=== PATIENT | male | born 1960 | race Caucasian/White ===

== ENCOUNTER 2016-05-27 06:59 | Inpatient (IN) ==
--- NOTE | 2016-05-26 20:41 | Discharge Summary ---
<Virginia Wiley Mary - Last Filed: 05/26/16 20:40> Date of Encounter: 05/26/16 - Discharge Diagnosis (1) Rotator cuff tear arthropathy of right shoulder Priority: Primary Status: Acute (2) Pacemaker Priority: Secondary Status: Chronic - Discharge Medications Home Medications: OxyCODONE Immed Rel [Roxicodone 5 MG] 5 - 10 mg PO Q6HR PRN #40 tablet 05/26/16 [Rx] Allergies/Adverse Reactions: Allergies No Known Allergies Allergy (Verified 05/27/16 07:45) Primary care physician: PCP NO - Patient Status Disposition: Home, Self-Care Condition: Good - Discharge Instructions Follow Up With: NO,PCP [Primary Care Provider] - Additional Instructions: Discharge Instructions: Total Shoulder Please call [facility] ([phone]), your Primary Care Physician, or report to the Emergency Room if you have any of the following symptoms: Nausea, vomiting, fever greater that 101.5, swelling, chest pain, shortness of breath, increased pain/redness/drainage/odor for your incision site, numbness/ tingling, or any other concerning symptoms. ACTIVITY: Always keep your arm in the sling. Do not raise your arm away from your body. Do not use your arm to help with getting in or out of bed. No weight bearing permitted. Only perform those exercises given to you by your therapist. MEDICATIONS: Upon discharge resume your home medications. Take all the medications as prescribed. Take a stool softener if taking narcotic pain medications. Stool softeners are only effective if you drink enough fluids. Drink 6-8 glass of water or fluids a day, unless this is not allowed for another health problem. Despite using stool softeners, if you haven't had a bowel movement in 3 days, please switch to a gentle laxative. Gentle laxatives are sold over the counter. You should have a bowel movement within 24 hours, if not call the office. You will be discharged from the hospital with a prescription for pain medication. You are encouraged to decrease the use of narcotic pain medication as tolerated. Should you require a refill, please call the office. [facility] prescribes narcotic pain medication for only 4-6 weeks after surgery. If you require pain medication beyond this time period, you may be referred to your Primary Care Physician or to the Pain Clinic for further evaluation. Plan ahead for refills on pain medication as many narcotics either need to be picked up at the office or mailed. It is best to call 48-72 hours in advance of needing a prescription refill so you don't run out of medication. To help control the post-operative pain, you may take NSAIDs (Aleve,Advil, Motrin, Ibuprofen, Naprosyn) or Tylenol as prescribed on the bottle in addition to the pain medication. WOUND CARE: Leave the dressing on for 7-10 days. You may change the dressing if it becomes saturated greater than 50%. Do not get the dressing wet at anytime. Wash your hands with antibacterial soap, rinse and dry prior to any wound care. If you have kaelyn the visiting nurse or rehab facility can remove the stapes 10-14 days after surgery and place steri-strips across the wound. Leave the steri-strips in place until they fall off on their own. You may let water from the shower run on top of the steri-strips. If you do not have a visiting nurse or rehab facility, you will need to return to the office at 10-14 days for the kaelyn to be removed. If you have itching or redness around the dressing call the office. FOLLOW-UP: Please follow up with your surgeon in the orthopedic clinic, as scheduled - Hospital Course Hospital course: Mr. Mckeon is a 55 year old male - Time Spent with Patient Total time spent providing and/or coordinating discharge services: <Braulio Yates - Last Filed: 05/27/16 17:34> Date of Encounter: 05/27/16 Time of Encounter: 17:34 - Discharge Diagnosis (1) Rotator cuff tear arthropathy of right shoulder Priority: Primary Status: Acute (2) Pacemaker Priority: Secondary Status: Chronic Primary care physician: PCP NO - Patient Status Functional capacity at discharge: independent ambulation Overall status at discharge: patient is progressing back to baseline - Hospital Course Hospital course: Mr. Mckeon is a 55 year old male The patient had an uneventful postoperative course. They received antibiotics and physical therapy and were discharged in stable condition. There will follow -up in the office in 2 weeks. - Time Spent with Patient Total time spent providing and/or coordinating discharge services:
[2016-05-27] MEDS ORDERED: *HR* Phenylephrine 10 MG/ML VIAL ONE (07:13)
[2016-05-27] MEDS ORDERED: Dexamethasone 4 MG/ML VIAL ONE (07:13)
[2016-05-27] MEDS ORDERED: *HR* FentaNYL (PF) 100 MCG/2 ML VIAL ONE (07:13)
[2016-05-27] MEDS ORDERED: Ondansetron 4 MG/2 ML VIAL ONE (07:13)
[2016-05-27] MEDS ORDERED: Lidocaine -MPF 2% 2 ML VIAL ONE (07:13)
[2016-05-27] MEDS ORDERED: *HR* Propofol 200 MG/20 ML VIAL IVP ONE ×3 (07:13→08:58)
[2016-05-27] MEDS ORDERED: *HR* Succinylcholine 200 MG/10 ML VIAL IVP ONE (07:13)
[2016-05-27] MEDS ORDERED: Lidocaine -MPF 4% 5 ML AMPUL ONE (07:13)
[2016-05-27] MEDS ORDERED: *HR* Midazolam HCl 2 MG/2 ML VIAL ONE (07:13)
[2016-05-27] MEDS ORDERED: *HR* Rocuronium Bromide 50 MG/5 ML VIAL ONE (07:13)
[2016-05-27] MEDS ORDERED: CeFAZolin Pre 2,000 MG/100 ML 2,000 MG/100 ML BAG IVPB ONE (07:18)
[2016-05-27] MEDS ORDERED: *HR* HYDROmorphone (PF) 1 MG/ML SYRINGE IVP PRN ×2 (07:26→10:46)
[2016-05-27] MEDS ORDERED: *HR* Labetalol 100 MG/20 ML MDV IVP PRN (07:26)
[2016-05-27] MEDS ORDERED: Albuterol 2.5 MG/3 ML NEBULIZER IH ONE (07:26)
[2016-05-27] MEDS ORDERED: *HR* Promethazine 25 MG/ML VIAL IVP PRN (07:26)
[2016-05-27] MEDS ORDERED: Ringers Solution, Lactated 1,000 ML IVC SCH ×2 (07:30→10:46)
--- NOTE | 2016-05-27 07:42 | Anesthesia Evaluation PreOp ---
Date of Encounter: 05/27/16 Time of Encounter: 07:38 - Past History Planned Operation: Right Total Shoulder Cardiac History: Pacemaker/ICD ([employer] pacemaker), Other (H/O sick sinus syndrome S/P pacemaker) Pulmonary History: Former smoker (quit 3 months ago, smoked for 41 years) [employer]CH[employer]IC [employer] History: Seizures (childhood) Other Medical History: Denies Any Significant HX Anesthesia History: No Prior Anesthetic Complications, Past Anesthesia Alcohol Use: none (quit 15 years ago, was heavy drinker) Drug use: none Medications and Allergies OxyCODONE Immed Rel [Roxicodone 5 MG] 5 - 10 mg PO Q6HR PRN #40 tablet 05/26/16 [Rx] Allergies No Known Allergies Allergy (Unverified 05/09/16 10:40) - Meds/Allergy Pre-op Review Medications Reviewed: Yes Allergies Reviewed: Yes Beta Blockers on Current Med List: No Anesthesia Results - Labs Laboratory Tests 05/09/16 05/09/16 05/09/16 10:40 10:40 10:40 WBC 6.6 Hgb 14.9 Hct 42.6 Plt Count 244 PT 10.8 INR 1.0 APTT 31.6 Sodium 137 Potassium 4.2 BUN 12 Creatinine 0.84 - Imaging EKG: report reviewed (05/09/2016 electronic atrial pacemaker) Additional studies: 10/26/2015 Echo LVEF 55-60% Anesthesia Exam O2 Sat Height 1.68 m Height 1.68 m Height 1.68 m Weight 70.76 kg Weight 70.76 kg Weight 70.76 kg O2 Sat by Pulse Oximetry 99 Vital Signs Temp Pulse Resp BP Pulse Ox 97.7 F 60 18 147/83 99 05/27/16 08:08 05/27/16 08:08 05/27/16 08:08 05/27/16 08:08 05/27/16 08:08 Height: 5'6'' Weight: 156 lbs NPO (# of Hours): 8 Pain Scale: 2 (at rest) Pain Scale Used: Numeric (1 - 10) - HEENT Pupil (Motor): EOMI Mallampati: II Teeth: Missing, Poor dentition Oral Opening: Greater than 3 - [employer] 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
--- NOTE | 2016-05-27 07:55 | History & Physical Report ---
Date of Encounter: 05/27/16 Time of Encounter: 07:54 24 Hour HP Update - Instructions Instructions: If the History and Physical is less than 30 days old and was completed prior to A.M. admission and or procedure and has NOT been updated on calendar day of procedure please complete this update prior to performing procedure. - Update Patient reports changes in Medical Condition: No Changes in examination, assessment, or condition: No Changes in Medication: No Preop tests/diagnostics Reviewed: Yes Surgery Remains Indicated: Yes Consent for Planned Operative Procedure(s) Verified: Yes - Pre-Operative Checklist Preoperative Checklist Indicated: No Prophylactic Antibiotic Ordered: Yes Is VTE Prophylaxis Indicated?: Yes
[2016-05-27] MEDS ORDERED: Tetracaine/PF 20 MG/2 ML AMPUL SPINA ONE (08:18)
[2016-05-27] MEDS ORDERED: Bupivacaine/Clonidine Syringe 1 EACH SYRINGE ONE (08:19)
[2016-05-27] MEDS ORDERED: Ketorolac 30 MG/ML VIAL ONE (09:20)
[2016-05-27] MEDS ORDERED: Ketamine *HR* 500 MG/10 ML MDV ONE (09:20)
[2016-05-27] MEDS ORDERED: Acetaminophen IV 1,000 MG/100 ML INFUS..BTL ONE (09:23)
--- NOTE | 2016-05-27 09:32 | Anesthesia Procedures ---
Date of Encounter: 05/27/16 Time of Encounter: 08:20 Procedures: Anesthesia - Nerve Block Procedure Date: 05/27/16 Time: 08:20 Allergies/Adv Reactions: NKDA Pre-op Diagnosis: RIGHT SHOULDER ARTHRITIS Surgical Procedure: RIGHT TOTAL SHOULDER Checklist: Correct Patient Identifier, Correct procedure, History checked Correct side: Right Blood Thinner: No Monitor Applied: BP, Pulse Oximetry Supplemental Oxygen via Nasal Cannula (L/min): 2 Sedation: Versed (mg): 2 Sedation: Fentanyl (mcg): 100 Indication: Post Op Analgesia Pre-op Neuro Deficits: No Block Type: Supraclavicular (ICB AND SCP) Catheter placed: No Sterile Technique: Yes Ultrasound used: Yes Anatomy identified: Yes Visual spread of Local: Yes Neuro Stimulation: Yes Nerve Stimulator Range: 0.2 - 0.4 mA Blood on Needle Aspiration: No Smooth Injection of Local: Yes Pain with Injection of Local: No Prep: Chlorhexadine Needle: 22 x 50 mm Stimuplex Local: 0.25% Bupivicaine w/Clonidine 20 mcg/cc (20CC), Other (30CC) Volume (cc): BUPIVICAINE 0.5% Number of Attempts: 2 Complications: None/effective block Vitals: Vital Signs - Last 8 Hours Temp Pulse Resp BP Pulse Ox 05/27/16 08:17 60 17 152/91 100 05/27/16 08:08 97.7 F 60 18 147/83 99 05/27/16 07:55 17 152/91 100 Intake and Output 05/26/16 05/27/16 05/27/16 23:59 07:59 15:59 Other: Weight 70.76 kg 70.76 kg Patient Weight 05/27/16 23:59 Weight 70.76 kg Comments: PER DR. BAIG REQUEST
[2016-05-27] MEDS ORDERED: EPHEDrine 50 MG/ML VIAL ONE (09:33)
--- NOTE | 2016-05-27 09:41 | Orthopedic Operative Note ---
Date of procedure: 05/27/16 Pre-op diagnosis: Right shoulder cuff tear arthropathy Post-op diagnosis: same Procedure: Procedure: Right Total Shoulder Replacment Reverse, Estimated blood loss: 100 cc Hardware:Arthrex large glenoid baseplate, 2 4.5 screws. 1 6.5 screw, 42+4 glenosphere, 9 humeral stem, poly insert 3 Exam Under anesthesia: Full motion and no instability Procedural Notes: Patient noted to have grade 3 arthritic changes humeral head irreparable tear supraspinatus tendon. Operative procedure: The patient was brought to the operating room and placed on the operating room table. After general anesthesia was administered the operative shoulder was examined. Findings were noted. The patient was placed in the modified beachchair position. All pressure points were padded appropriately. And the head was stabilized in the neutral position. The operative extremity was prepped and draped in the sterile surgical fashion. The patient received IV antibiotics prior to skin incision. A standard deltopectoral approach was made to the operative shoulder. Incision was made to the skin and subcutaneous tissue,hemo stasis was obtained with Bovie cautery. Using careful blunt dissection the cephalic vein was identified and mobilized medially. The deltopectoral interval was developed and the clavipectoral fascia was incised. The subscap was released off the lesser tuberosity and tagged with #2 FiberWire suture. The humerus was dislocated patient noted to have irreparable tear supraspinatus tendon, and the humeral cut was made along the anatomic neck. Patient noted to have grade 3 arthritic changes humeral head. Anterior and posterior Bankart retractors were placed to expose the glenoid. The glenoid guide was seated and the centering hole was made. It was reamed with the appropriate reamer. The large baseplate was seated and secured with (2) 4.5 screws and one 6.5 screw. The baseplate was irrigated and dried and the 42+4 Glenosphere was seated and secured with the Barbosa taper. The Barbosa taper was tested and found to be secure the humerus was redislocated and prepared with the diaphyseal reamers, followed by a broaching process up to the appropriate size 9 in the patient's anatomic version. The metaphyseal reamer was then utilized. Trial reduction found the shoulder to be relocatable. Trial components were removed patient had an irreparable subscap. The appropriate 9 stem was impacted in place in the patient's anatomic version. Trial reduction found the shoulder to be relocatable and stable with the appropriate 3. Trial component was removed and the 3 implant was seated and secured the shoulder was reduced. The shoulder had excellent motion and excellent stability and no evidence of dislocation. The deep tissue was irrigated with pulse irrigation. The deltopectoral interval was closed with a running #1 PDS suture, subcutaneous tissue was irrigated and closed with 0 PDS suture, the skin was closed with Dermabond. The patient was placed in a sterile dressing, abduction brace and extubated. The patient was then transferred to the recovery room in stable condition. Anesthesia: SYLVESTER Surgeon: Braulio Yates Trader Fixed Income: Virginia Wiley Condition: stable Disposition: PACU
--- NOTE | 2016-05-27 10:23 | Anesthesia Evaluation Post Op ---
Date of Encounter: 05/27/16 Time of Encounter: 10:22 - Vital Signs Vital Signs: Last Vital Signs Temp 97.9 F 05/27/16 09:54 Pulse 73 05/27/16 10:04 Resp 22 05/27/16 10:04 BP 142/87 05/27/16 10:04 Pulse Ox 97 05/27/16 10:04 - Lungs Lungs: Clear Ascult./Percussion - Airway Airway: Non-obstructed - Cardiovascular Regular Rate - Mental Status Mental Status: Alert & Oriented, Answers Appropriately - Pain Pain Scale: 2 - Nausea Vomiting Nausea Vomiting: Not Present - Hydration Hydration: Ice chips - Discharge PostOp Status: Transfer Patient to floor
[2016-05-27 10:24] LABS: Hematocrit 40.1 % (37.5-50.1); Hemoglobin 13.4 g/dL (12.9-16.9)
[2016-05-27] MEDS ORDERED: Ondansetron 4 MG/2 ML VIAL IVP PRN (10:46)
[2016-05-27] MEDS ORDERED: *HR* OxyCODONE Immed Rel 5 MG TABLET PO PRN ×2 (10:46)
[2016-05-27] MEDS ORDERED: Sennosides 8.6 MG TABLET PO PRN (10:46)
[2016-05-27] MEDS ORDERED: MOM Conc 10 ML UD.LIQ PO PRN (10:46)
[2016-05-27] MEDS ORDERED: Acetaminophen 325 MG TABLET PO PRN (10:46)
[2016-05-27] MEDS ORDERED: Naloxone 0.4 MG/ML INJ IVP PRN (10:46)
[2016-05-27] MEDS ORDERED: Temazepam 15 MG CAPSULE PO PRN (10:46)
[2016-05-27 13:23] VITALS: BP 130/73
[2016-05-27] MEDS ORDERED: *HR* Enoxaparin 30 MG/0.3 ML SYRINGE SQ ONE (14:58)
[2016-05-27] MEDS ORDERED: ceFAZolin 2,000 MG in D5% in Water 100 ML IVPB SCH (16:00)
[2016-05-27] MEDS ORDERED: *HR* Enoxaparin 30 MG/0.3 ML SYRINGE SQ SCH ×2 (18:00)
== END 2016-05-27 15:16 | disposition home or self-care (01) | DRG 483 ==
LOC: SAMDAY 06:59 → 3NENU 10:50
PROVIDERS: ADMIT Orthopaedic Surgery; ATTEND Orthopaedic Surgery